=== PATIENT | female | born 1950 | race Caucasian/White ===

== ENCOUNTER 2019-07-31 14:49 | Observation (INO) ==
[2019-07-31] MEDS ORDERED: Pantoprazole 80 MG in 0.9 % Sodium Chloride 50 ML IVPB ONE (15:16)
[2019-07-31] MEDS ORDERED: 0.9 % Sodium Chloride 1,000 ML IVC ONE (15:16)
--- NOTE | 2019-07-31 15:19 | Emergency Department Note ---
Disposition Clinical Impression: Acute GI bleeding Disposition: Admitted As Inpatient Condition: Good Time of Disposition: 10:11 General Adult HPI - General Chief complaint: ED GI Bleed Stated complaint: GI bleed Time Seen by Provider: 07/31/19 15:14 Source: patient Limitations: no limitations - History of Present Illness Pain Scale: 0 - Related Data Home Medications Medication Instructions Recorded Confirmed Ospemifene [Osphena] 60 mg PO DAILY 07/31/19 08/01/19 Previous Rx's Medication Instructions Recorded Ferrous Sulfate 325 mg PO BIDWM 30 Days #60 tablet 08/02/19 Omeprazole [PriLOSEC] 40 mg PO DAILY@0630 30 Days #30 08/02/19 capsule. 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 - Social History Smoking Status: Never smoker Smokeless Tobacco Status: No Alcohol use: Reports: occasionally Drug use: Reports: none Physical Exam - General Limitations: no limitations General appearance: alert, in no apparent distress Course Vital Signs Temperature 98.0 F 07/31/19 14:51 Pulse Rate 109 07/31/19 14:51 Respiratory Rate 18 07/31/19 14:51 Blood Pressure 128/77 07/31/19 14:51 O2 Sat by Pulse Oximetry 100 07/31/19 14:51 Temperature 98.2 F 08/02/19 08:21 Pulse Rate 67 08/02/19 08:21 Respiratory Rate 16 08/02/19 08:21 Blood Pressure 122/66 08/02/19 08:21 O2 Sat by Pulse Oximetry 96 08/02/19 08:21 Oxygen Delivery Oxygen Delivery Room Air Medical Decision Making - Lab Data Result diagrams: 08/02/19 04:17 08/01/19 04:41 Lab Results 07/31/19 07/31/19 07/31/19 Range/Units 14:59 14:59 15:16 WBC 10.3 (4.3-11.1) K/mcL RBC 3.23 L (3.82-4.97) M/mcL Hgb 9.2 L (11.5-15.4) g/dL Hct 29.0 L (35.3-44.9) % MCV 89.8 (83.0-100.0) fL MCH 28.5 (28.0-33.3) pg MCHC 31.7 (31.6-35.5) g/dL RDW 13.6 (11.5-14.5) % Plt Count 223 (140-400) K/mcL MPV 10.9 (9.4-12.4) fL Immature Gran % 0.4 (0-4) % Seg Neutrophils % 71.9 % Lymphocytes % 24.4 % Monocytes % 3.0 % Eosinophils % 0.0 % Basophils % 0.3 % Neutrophils # 7.4 (1.6-8.9) K/mcL Lymphocytes # 2.5 (0.6-4.6) K/mcL Monocytes # 0.3 (0.0-1.3) K/mcL Eosinophils # 0.0 (0.0-0.6) K/mcL Basophils # 0.0 (0.0-0.2) K/mcL PT 12.1 (9.4-12.1) Seconds INR 1.1 APTT 25.2 L (26.0-36.0) Seconds Sodium 140 (136-145) mEq/L Potassium 3.8 (3.5-5.1) mEq/L Chloride 107 (98-107) mEq/L Carbon Dioxide 24 (23-29) mEq/L BUN 39 H (8-23) mg/dL Creatinine 0.90 (0.60-1.20) mg/dL Est GFR ( Amer) > 60 (> 60) Est GFR (Non-Af Amer) > 60 (> 60) BUN/Creatinine Ratio 43 H (6-26) Glucose 162 H (70-105) mg/dL Calculated Osmolality 303 H (280-300) Calcium 8.4 L (8.6-10.3) mg/dL Stool Occult Bld Scrn (Negative) Blood Type Antibody Screen Crossmatch 07/31/19 07/31/19 Range/Units 15:39 16:51 WBC (4.3-11.1) K/mcL RBC (3.82-4.97) M/mcL Hgb (11.5-15.4) g/dL Hct (35.3-44.9) % MCV (83.0-100.0) fL MCH (28.0-33.3) pg MCHC (31.6-35.5) g/dL RDW (11.5-14.5) % Plt Count (140-400) K/mcL MPV (9.4-12.4) fL Immature Gran % (0-4) % Seg Neutrophils % % Lymphocytes % % Monocytes % % Eosinophils % % Basophils % % Neutrophils # (1.6-8.9) K/mcL Lymphocytes # (0.6-4.6) K/mcL Monocytes # (0.0-1.3) K/mcL Eosinophils # (0.0-0.6) K/mcL Basophils # (0.0-0.2) K/mcL PT (9.4-12.1) Seconds INR APTT (26.0-36.0) Seconds Sodium (136-145) mEq/L Potassium (3.5-5.1) mEq/L Chloride (98-107) mEq/L Carbon Dioxide (23-29) mEq/L BUN (8-23) mg/dL Creatinine (0.60-1.20) mg/dL Est GFR ( Amer) (> 60) Est GFR (Non-Af Amer) (> 60) BUN/Creatinine Ratio (6-26) Glucose (70-105) mg/dL Calculated Osmolality (280-300) Calcium (8.6-10.3) mg/dL Stool Occult Bld Scrn Positive A (Negative) Blood Type A POSITIVE Antibody Screen NEGATIVE Crossmatch See Detail Critical Care Time Critical Care Time: Yes Total Critical Care Time: 30 Attestation: The high probability of a clinically significant, sudden or life threatening deterioration of the [] system(s) required my full and direct attention, intervention and personal management. The aggregate critical care time was [] minutes. This time is in addition to time spent performing reported procedures but includes the following: [] Data Review and interpretation [] Patient assessment and monitoring of vital signs [] Documentation [] Medication orders and management Attestation Statement - Attestation Attestation: I reviewed the residents documentation and agree with the residents assessment and plan of care. I have personally had face to face time with the patient. (Brief History, Brief Exam, and MDM) I personally supervised and was present for the ridley/critical portions of the following procedures completed by the resident: (add procedures performed here). [id number] time provided Patient arrives complaining of dark tarry stools and coffee-ground emesis. She takes no blood thinners. She is tachycardic and slightly pale upon arrival. She does complain of nausea. I attest to supervising the resident physician's interpretation of the ECG
--- NOTE | 2019-07-31 15:36 | Emergency Department Note ---
Disposition Clinical Impression: Acute GI bleeding Disposition: Admitted As Inpatient Time of Disposition: 16:35 General Adult HPI - General Chief complaint: ED GI Bleed Stated complaint: GI bleed Time Seen by Provider: 07/31/19 15:14 Source: patient Mode of arrival: ambulatory Limitations: no limitations Nursing Notes Reviewed: Yes Vital Signs Reviewed: Yes - History of Present Illness HPI Narrative: Vision 68-year-old female no significant past medical history presenting the emergency department for concerns for GI bleed. Patient states that this morning around 8 AM she had a episode of dark tarry stools and coffee-ground emesis. She then fell asleep and woke up around 2 PM and had another episode of dark tarry stools. Patient has never experienced anything like this before she has no history of GI bleeds. She had headache and took aspirin yesterday. No other blood thinning medications. Patient has not been taking iron supplementation or Pepto-Bismol. She takes no other daily medications. She admits to nausea, and fever/chills. Patient's last colonoscopy was 2017 which was normal. Has not had an upper endoscopy. Denies chest pain, shortness of breath, palpitations, weakness, fatigue. Pain Scale: 0 - Related Data Home Medications Medication Instructions Recorded Confirmed Famotidine [Heartburn Prevention] 20 mg PO DAILY 07/31/19 07/31/19 Ospemifene [Osphena] 60 mg PO DAILY 07/31/19 07/31/19 Allergies Allergy/AdvReac Type Severity Reaction Status Date / Time codeine Allergy Rash Verified 10/11/17 13:43 All systems ED: reviewed and negative except as stated. Review of Systems: As Per HPI Constitutional: Reports: as per HPI, fever, chills. Denies: weakness Eyes: Denies: eye pain, eye discharge ENT ED: Denies: ear pain, throat pain Cardiovascular: Denies: chest pain, palpitations Respiratory: Denies: cough, dyspnea Gastrointestinal: Denies: abdominal pain, nausea Genitourinary: Denies: urgency, dysuria Musculoskeletal: Denies: back pain, neck pain Integumentary: Denies: rash, abrasion Neurological: Denies: headache, weakness Psychiatric: Denies: anxiety, depression Endocrine: Denies: fatigue, heat or cold intolerance Hematological/Lymphatic: Denies: easy bleeding, easy bruising Allergic/Immunologic: Denies: facial swelling, urticaria Past Medical History - Past Medical History Attestation: Yes The following information was validated with the patient. 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 Absent: scleral icterus, conjunctival injection - ENT ENT exam: normal exam, normal oropharynx - Neck Neck exam: Present: normal inspection, full ROM - Chest Chest inspection: Present: normal inspection, symmetric chest wall rise. Abse nt: tenderness - Respiratory Respiratory exam: Present: normal lung sounds bilaterally. Absent: respiratory distress, wheezes - Cardiovascular Cardiovascular exam: Present: normal rhythm, tachycardia, normal heart sounds - Abdominal Exam Abdominal exam: Present: soft, Non-Tender. Absent: tenderness, distention, guarding - Extremities Exam Extremities exam: Present: normal inspection, full ROM - Expanded Lower Extremity Exam Neurovascular/Tendon exam: Present: normal capillary refill. Absent: pulse deficit, motor deficit, sensory deficit - Back Exam Back exam: Present: normal inspection, full ROM - Neurological Exam Neurological exam: Present: alert, oriented X3 - Psychiatric Psychiatric exam: Present: normal affect, normal mood - Skin Skin exam: Present: warm, dry Course Vital Signs Temperature 98.0 F 07/31/19 14:51 Pulse Rate 109 07/31/19 14:51 Respiratory Rate 18 07/31/19 14:51 Blood Pressure 128/77 07/31/19 14:51 O2 Sat by Pulse Oximetry 100 07/31/19 14:51 Temperature 98.7 F 07/31/19 20:53 Pulse Rate 78 07/31/19 20:53 Respiratory Rate 14 07/31/19 20:53 Blood Pressure 113/70 07/31/19 20:53 O2 Sat by Pulse Oximetry 98 07/31/19 20:53 Oxygen Delivery Oxygen Delivery Room Air Medical Decision Making - MDM Narrative Medical decision making narrative: 68-year-old female no significant past medical history presenting emergency department for GI bleed. Patient episodes of melena and hematochezia. We will perform evaluation to look for hemoglobin levels. Plan to admit the patient for new GI bleed. Patient's hemoglobin 9.6. She was given IV fluids as well as protonics. Spoke with hospitalist Dr. Romeo who is agreed to admit the patient. - Medical Records Medical records reviewed: Yes I reviewed the patient's medical records. - Lab Data Lab results reviewed: Yes I reviewed the patient's lab results. Result diagrams: 07/31/19 14:59 07/31/19 14:59 Lab Results 07/31/19 07/31/19 07/31/19 Range/Units 14:59 14:59 15:16 WBC 10.3 (4.3-11.1) K/mcL RBC 3.23 L (3.82-4.97) M/mcL Hgb 9.2 L (11.5-15.4) g/dL Hct 29.0 L (35.3-44.9) % MCV 89.8 (83.0-100.0) fL MCH 28.5 (28.0-33.3) pg MCHC 31.7 (31.6-35.5) g/dL RDW 13.6 (11.5-14.5) % Plt Count 223 (140-400) K/mcL MPV 10.9 (9.4-12.4) fL Immature Gran % 0.4 (0-4) % Seg Neutrophils % 71.9 % Lymphocytes % 24.4 % Monocytes % 3.0 % Eosinophils % 0.0 % Basophils % 0.3 % Neutrophils # 7.4 (1.6-8.9) K/mcL Lymphocytes # 2.5 (0.6-4.6) K/mcL Monocytes # 0.3 (0.0-1.3) K/mcL Eosinophils # 0.0 (0.0-0.6) K/mcL Basophils # 0.0 (0.0-0.2) K/mcL PT 12.1 (9.4-12.1) Seconds INR 1.1 APTT 25.2 L (26.0-36.0) Seconds Sodium 140 (136-145) mEq/L Potassium 3.8 (3.5-5.1) mEq/L Chloride 107 (98-107) mEq/L Carbon Dioxide 24 (23-29) mEq/L BUN 39 H (8-23) mg/dL Creatinine 0.90 (0.60-1.20) mg/dL Est GFR ( Amer) > 60 (> 60) Est GFR (Non-Af Amer) > 60 (> 60) BUN/Creatinine Ratio 43 H (6-26) Glucose 162 H (70-105) mg/dL Calculated Osmolality 303 H (280-300) Calcium 8.4 L (8.6-10.3) mg/dL Stool Occult Bld Scrn (Negative) Blood Type Antibody Screen 07/31/19 07/31/19 Range/Units 15:39 16:51 WBC (4.3-11.1) K/mcL RBC (3.82-4.97) M/mcL Hgb (11.5-15.4) g/dL Hct (35.3-44.9) % MCV (83.0-100.0) fL MCH (28.0-33.3) pg MCHC (31.6-35.5) g/dL RDW (11.5-14.5) % Plt Count (140-400) K/mcL MPV (9.4-12.4) fL Immature Gran % (0-4) % Seg Neutrophils % % Lymphocytes % % Monocytes % % Eosinophils % % Basophils % % Neutrophils # (1.6-8.9) K/mcL Lymphocytes # (0.6-4.6) K/mcL Monocytes # (0.0-1.3) K/mcL Eosinophils # (0.0-0.6) K/mcL Basophils # (0.0-0.2) K/mcL PT (9.4-12.1) Seconds INR APTT (26.0-36.0) Seconds Sodium (136-145) mEq/L Potassium (3.5-5.1) mEq/L Chloride (98-107) mEq/L Carbon Dioxide (23-29) mEq/L BUN (8-23) mg/dL Creatinine (0.60-1.20) mg/dL Est GFR ( Amer) (> 60) Est GFR (Non-Af Amer) (> 60) BUN/Creatinine Ratio (6-26) Glucose (70-105) mg/dL Calculated Osmolality (280-300) Calcium (8.6-10.3) mg/dL Stool Occult Bld Scrn Positive A (Negative) Blood Type A POSITIVE Antibody Screen NEGATIVE - Radiology Data Radiology results reviewed: Yes I reviewed the patient's radiology results. Chest X-Ray 07/31/19 15:51 IMPRESSION: No acute cardiopulmonary disease D/ / Andrez Witt MD / Andrez Witt MD Interpreting Provider: Andrez Witt MD - EKG Data EKG #1 EKG attestation: Yes I reviewed and interpreted this EKG. EKG results narrative: EKG performed at 1514 reviewed by myself intending shows a sinus tachycardic rhythm at a rate of 111 bpm, [place] 150, QRS 86, QTC 395. There are slight ST depressions in the inferior lateral leads. Changes no other signs of ischemia. There is no old EKG to compare with.
[2019-07-31 15:59] LABS: Basophils % 0.3 %; Hemoglobin 9.2 g/dL (11.5-15.4); Immature Granulocytes % 0.4 % (0-4); Lymphocytes # 2.5 K/mcL (0.6-4.6); Lymphocytes % 24.4 %; Mean Corpuscular HGB Conc 31.7 g/dL (31.6-35.5); Mean Corpuscular Hemoglobin 28.5 pg (28.0-33.3); Mean Corpuscular Volume 89.8 fL (83.0-100.0); Mean Platelet Volume 10.9 fL (9.4-12.4); Monocytes # 0.3 K/mcL (0.0-1.3); Neutrophils # 7.4 K/mcL (1.6-8.9); Platelet Count 223 K/mcL (140-400); Red Blood Count 3.23 M/mcL (3.82-4.97); Red Cell Distribution Width 13.6 % (11.5-14.5); Segmented Neutrophils % 71.9 %; White Blood Count 10.3 K/mcL (4.3-11.1)
[2019-07-31 16:08] LABS: INR 1.1; Prothrombin Time 12.1 Seconds (9.4-12.1)
[2019-07-31 16:11] LABS: Activated Partial Thrombo Time 25.2 Seconds (26.0-36.0)
[2019-07-31 16:16] LABS: BUN/Creatinine Ratio 43 (6-26); Blood Urea Nitrogen 39 mg/dL (8-23); Calcium 8.4 mg/dL (8.6-10.3); Carbon Dioxide 24 mEq/L (23-29); Chloride 107 mEq/L (98-107); Glucose 162 mg/dL (70-105); Osmolality,Calculated 303 (280-300); Potassium 3.8 mEq/L (3.5-5.1); Sodium 140 mEq/L (136-145); eGFR For African Americans > 60 (> 60); eGFR For Non-African Americans > 60 (> 60)
[2019-07-31] MEDS ORDERED: Naloxone 0.4 MG/ML INJ IVP PRN (17:12)
[2019-07-31] MEDS ORDERED: Ondansetron 4 MG/2 ML VIAL IVP PRN (17:12)
[2019-07-31] MEDS ORDERED: *HR* HYDROcodone/Acet 5/325 mg TABLET PO PRN (17:12)
[2019-07-31] MEDS ORDERED: Dextrose Gel 15 GM/37.5 ML TUBE PO PRN ×2 (17:15)
[2019-07-31] MEDS ORDERED: D5% in Water 1,000 ML IVC PRN (17:15)
[2019-07-31] MEDS ORDERED: *HR* Dextrose 50 % in Water (Syg) 50 ML SYRINGE IVP PRN (17:15)
[2019-07-31] MEDS ORDERED: D5% in 0.9% NACL 1,000 ML IVC SCH (17:15)
--- NOTE | 2019-07-31 17:56 | Internal Med History&Physical ---
Date of Encounter: 07/31/19 Time of Encounter: 17:49 Internal Medicine - H&P: HPI Chief complaint: GI bleed Admitted From: Home History of present illness: Ms. Brizuela is a 68 year old female PMH of GERD. Patient reported waking up today morning at 8am and had one episode of coffee ground emesis, and one episode of dark stool. she reported she went back to bed and around 2pm when she woke up had another bowel movement of dark stool. Patient denies abdominal pain, but reports nausea. Reports taking one aspirin a day, and taking some over the counter medication for GERD like symptoms. Denies previous episodes of GI bleed and reported she had a colonoscopy about 1 1/2 years ago and was told everything was ok. Reported 15 pounds weight lost for the past 8 month which she attributes to following a diet. Denies chest pain, shortness of breath. Past Med Surg Social Fam HX - Past Medical History Medical history: GERD, other Psychiatric history: no psych history - Past Surgical History Surgical History: other Additional surgical history: hand - Social History Smoking Status: Never smoker Smokeless Tobacco Status: No Alcohol use: occasionally Drug use: none Internal Medicine - H&P: Meds Allergy/AdvReac Type Severity Reaction Status Date / Time codeine Allergy Rash Verified 10/11/17 13:43 All Systems PM: A 10-system review of systems was performed and is negative for pertinent findings except as documented above in the HPI. - Constitutional Constitutional: no chills, no fever(s), no weakness - Cardiovascular Cardiovascular ROS IM: no chest pain, no edema - Respiratory Respiratory: no cough - Gastrointestinal Gastrointestinal: coffee ground emesis, heartburn, hematemesis, melena, nausea, vomiting, no abdominal pain - Genitourinary Genitourinary: no dysuria - Musculoskeletal Musculoskeletal ROS IM: no atrophy, no back pain - Integumentary Integumentary IM: no erythema - Neurological Neurological ROS: no headache(s) - Psychiatric Psychiatric: no irritability - Endocrine Endocrine IM: no cold intolerance, no excessive sweating - Hematologic/Lymphatic Hematologic/Lymphatic: no lymphadenopathy - Allergic/Immunologic Allergic/Immunologic: no GI upset with certain foods - Constitutional Vitals: Temp Pulse Resp BP Pulse Ox 98.0 F 73 18 108/53 100 07/31/19 14:51 07/31/19 16:35 07/31/19 16:35 07/31/19 16:35 07/31/19 16:35 Exam: Vitals: Reviewed General: Alert and oriented x4. In no distress Skin: Normal color, no rash, no lesions. HEENT: EOM, pupils equal, round and reactive. Cardiovascular: RRR, normal S1 & S2, no rubs, murmurs or gallops. Lungs: CTA b/l, no wheezes or crackles. Abdomen: Soft, non-tender, no rigidity. Extremities: No deformity, no edema or tenderness, no joint swelling or clubbing. Neurological: Normal cognition and motor skills. Rest of the physical exam is non contributory Internal Med - H&P Results - Labs CBC & Chem 7: 07/31/19 14:59 07/31/19 14:59 Labs: Short CBC 07/31/19 Range/Units 14:59 WBC 10.3 (4.3-11.1) K/mcL Hgb 9.2 L (11.5-15.4) g/dL Hct 29.0 L (35.3-44.9) % Plt Count 223 (140-400) K/mcL Neutrophils # 7.4 (1.6-8.9) K/mcL BMP 07/31/19 14:59 Sodium 140 Potassium 3.8 Chloride 107 Carbon Dioxide 24 BUN 39 H Creatinine 0.90 Glucose 162 H Calcium 8.4 L - Impressions ITS Impressions Chest X-Ray 07/31/19 15:51 IMPRESSION: No acute cardiopulmonary disease D/ / Andrez Witt MD / Andrez Witt MD Interpreting Provider: Andrez Witt MD - Diagnostic Studies Chest x-ray Status: image reviewed by me (No acute findings. ) - Assessment and Plan (1) GI bleed Current Visit: Yes Status: Acute Assessment and plan: patient reported one episode of coffee ground emesis and one large BM of dark stool. Possible esophagitis vs gastritis vs PUD, vs AVM. Plan NPO accu-checks Q6HRs plus lispro low dose sliding scale started on PPIs/IV BID and anti-emetics D5/0.9%NS @75ml/hr GI consulted CT abd/pelvis with contrast ordered Qualifiers: GI bleed type/associated pathology: unspecified gastrointestinal hemorrhage type Qualified Code(s): K92.2 - Gastrointestinal hemorrhage, unspecified (2) Anemia Current Visit: Yes Status: Acute Assessment and plan: plan of care as above Qualifiers: Anemia type: unspecified type Qualified Code(s): D64.9 - Anemia, unspecified (3) DVT prophylaxis Current Visit: Yes Status: Acute Assessment and plan: intermittent pneumatic compression - Time Spent With Patient Total time spent is greater than 50% in coordination of care (as documented) at patient's floor/unit and/or counseling patient: Greater than 35 minutes (45)
[2019-07-31] MEDS ORDERED: Isovue-370 500 ML BOTTLE IVP ONE ×2 (18:04→20:14)
[2019-07-31] MEDS ORDERED: Acetaminophen IV 500 MG/50 ML INFUS..BTL IVPB ONE (19:43)
[2019-07-31 21:14] LABS: Basophils % 0.3 %; Hematocrit 25.5 % (35.3-44.9); Hemoglobin 8.2 g/dL (11.5-15.4); Immature Granulocytes % 0.4 % (0-4); Lymphocytes # 2.1 K/mcL (0.6-4.6); Lymphocytes % 18.7 %; Mean Corpuscular HGB Conc 32.2 g/dL (31.6-35.5); Mean Corpuscular Hemoglobin 28.7 pg (28.0-33.3); Mean Corpuscular Volume 89.2 fL (83.0-100.0); Mean Platelet Volume 11.1 fL (9.4-12.4); Monocytes # 0.3 K/mcL (0.0-1.3); Monocytes % 2.7 %; Neutrophils # 8.8 K/mcL (1.6-8.9); Platelet Count 189 K/mcL (140-400); Red Blood Count 2.86 M/mcL (3.82-4.97); Red Cell Distribution Width 13.8 % (11.5-14.5); Segmented Neutrophils % 77.9 %; White Blood Count 11.2 K/mcL (4.3-11.1)
[2019-07-31] MEDS: Insulin LISPRO 300 UNITS/3 ML VIAL SQ SCH (21:29)
[2019-07-31] MEDS: Pantoprazole 40 MG VIAL IVP SCH (21:29)
[2019-08-01] MEDS: Insulin LISPRO 300 UNITS/3 ML VIAL SQ SCH ×4 (00:04→19:44)
[2019-08-01] MEDS ORDERED: Acetaminophen 325 MG TABLET PO PRN (04:35)
[2019-08-01 05:17] LABS: Basophils % 0.2 %; Hematocrit 22.2 % (35.3-44.9); Immature Granulocytes % 0.2 % (0-4); Lymphocytes # 2.4 K/mcL (0.6-4.6); Lymphocytes % 37.5 %; Mean Corpuscular HGB Conc 31.5 g/dL (31.6-35.5); Mean Corpuscular Hemoglobin 28.7 pg (28.0-33.3); Mean Platelet Volume 11.1 fL (9.4-12.4); Monocytes # 0.3 K/mcL (0.0-1.3); Monocytes % 5.1 %; Neutrophils # 3.6 K/mcL (1.6-8.9); Platelet Count 160 K/mcL (140-400); Red Blood Count 2.44 M/mcL (3.82-4.97); Red Cell Distribution Width 14.1 % (11.5-14.5); White Blood Count 6.3 K/mcL (4.3-11.1)
[2019-08-01 05:36] LABS: Alanine Aminotransferase 9 Units/L (7-52); Albumin 3.1 g/dL (3.5-5.7); Albumin/Globulin Ratio 2.4 (1.1-2.2); Alkaline Phosphatase 23 Units/L (34-104); Aspartate Amino Transferase 10 Units/L (13-39); BUN/Creatinine Ratio 24 (6-26); Bilirubin,Total 0.3 mg/dL (0.3-1.0); Blood Urea Nitrogen 20 mg/dL (8-23); Carbon Dioxide 25 mEq/L (23-29); Chloride 112 mEq/L (98-107); Globulin 1.3 g/dL (2.4-3.5); Glucose 142 mg/dL (70-105); Magnesium 1.9 mg/dL (1.6-2.6); Osmolality,Calculated 301 (280-300); Phosphorous 2.3 mg/dL (2.7-4.5); Potassium 3.3 mEq/L (3.5-5.1); Sodium 143 mEq/L (136-145); Total Protein 4.4 g/dL (6.4-8.9); eGFR For African Americans > 60 (> 60); eGFR For Non-African Americans > 60 (> 60)
[2019-08-01] MEDS: Pantoprazole 40 MG VIAL IVP SCH (06:22)
--- NOTE | 2019-08-01 07:08 | Electrocardiograph Report ---
[address] [address] Test Date: 2019-07-31 Pat Name: Gay Brizuela Department: 104 Room: 3A41 Gender: F [employer] Worker: Sharmin : 1950 Requested By: Sreedhar Pryor Order Number: [id number] Reading MD: Inderjit Acuna Measurements Intervals [place] Rate: 111 P: 42 MT: 150 QRS: 61 QRSD: 86 T: 45 QT: 330 QTc: 395 Interpretive Statements SINUS TACHYCARDIA POSSIBLE ANTERIOR MYOCARDIAL INFARCTION, PROBABLY OLD ABNORMAL RHYTHM ECG Electronically Signed On 08-01-2019 7:07:03 EDT by Inderjit Acuna
[2019-08-01] MEDS ORDERED: 0.9 % Sodium Chloride 250 ML IVC SCH (07:45)
--- NOTE | 2019-08-01 08:33 | Internal Medicine Consult Note ---
Date of Encounter: 08/01/19 Time of Encounter: 08:33 - Assessment and Plan (1) Acute GI bleeding Current Visit: Yes Status: Acute Assessment and plan: - Evidence of acute GI bleeding including hematemesis as well as melena - Most likely upper GI in nature- etiology suspected to be gastric ulcer versus gastritis versus NSAID induced - Patient initially did present tachycardic which has resolved with fluids - Hemoglobin initially 9.2 which is trended to 7.0 with some evidence of hemodilution - No previous baseline to compare - Coagulation studies within normal limits. - Hemoccult blood was positive - CTA of the abdomen and pelvis was obtained which noted no evidence of acute extravasation - Previous colonoscopy on 09/17/17 which showed colonic diverticulosis with Dr. Woods. Performed for screening. - Nothing by mouth since admission - Started on Protonix twice a day Plan - Recommend that patient undergo EGD this afternoon - Continue nothing by mouth status - Continue Protonix 40 mg IV twice a day - Further recommendations pending EGD results (2) Anemia Current Visit: Yes Status: Acute Assessment and plan: As above Qualifiers: Anemia type: unspecified type Qualified Code(s): D64.9 - Anemia, unspecified Internal Medicine - CN: HPI - Data of Consult Patient: new to practice Consult date: 08/01/19 Requesting Physician: Bowen Vail MD - Consult Narrative Reason for consult: GI Bleed History of present illness: Ms. Brizuela is a 68 year old female with past medical history of GERD who presents to the emergency department with complaint of coffee-ground emesis as well as melena. She states that she woke on Thursday morning approximately 8 AM and had one episode of coffee-ground emesis. She has never had episodes like this in the past. She states that she did have one dark colored bowel movement that was formed early in the morning followed by a sticky dark bowel movement later in the afternoon. She denies any symptoms of fevers, chills, recent illn ess, sick contacts as well as any abdominal pain or bright red blood per rectum. She denies any history of GI bleeds and is not on anticoagulation but does take a full dose aspirin as needed for pain. She states that she uses that approximately 2-3 times per week with most recent of twice on Thursday for headache. She has had a colonoscopy on 09/17/17 which showed colonic diverticulosis but otherwise within normal limits. She has not had any history of peptic ulcer disease, any EGDs. She states prior to this episode her bowel movements have been within normal limits. She also denies any symptoms of vision changes, joint pains, urinary symptoms but does admit to current headache. In the emergency department, vital signs are significant for heart rate of 109 and stable blood pressure. Heart rate did improve during hospital stay. Laboratory results were significant for a presenting hemoglobin of 9.2 which is now trended to 7.0 as well as platelets at 160. Coagulation studies are mildly low and PTT of 25.2. Chemistries were overall unremarkable however did show an elevated BUN on presentation at 39, glucose 162 calcium 8.4, normal LFTs. Fecal occult was positive. CT of the abdomen and pelvis shows no evidence of active arterial extravasation along the GI tract and otherwise no acute findings. At time of my interview, patient states that she is doing very well. She has no further episodes of emesis and has no further bowel movements. She remains pain-free. Past medical history: GERD Past surgical history: Patient denies Social history: Never smoker, occasional alcohol use (2-3/week), denies drug use Family hx: breast and lung cancer in mother. Past Med Surg Social Fam HX - Past Medical History Medical history: GERD, other Psychiatric history: no psych history - Past Surgical History Surgical History: other Additional surgical history: hand - Social History Smoking Status: Never smoker Smokeless Tobacco Status: No Alcohol use: occasionally Drug use: none Review of systems: - Constitutional: Positive for intentional weight loss. Denies fevers, chills, generalized fatigue - Head/Neck: positive for [place]. Denies neck stiffness - EENT: Denies vision changes/blurriness, rhinorrhea, congestion, sore throat - CVS: Denies chest pain, palpitations, PARHAM, edema, - Pulm: Denies SOB, cough, sputum, wheezing - GI: Admits to nausea, hematemasis, melena. Denies abdominal pain,diarrhea, constipation - : Denies dysuria, increased frequency, urgency, hematuria, - MSK: Denies joint pain, limited ROM - Skin: Denies rashes, ulcers, color changes, - Neuro: Denies paresthesias, focal deficits, ataxia, Internal Medicine - CN: Meds Famotidine [Heartburn Prevention] 20 mg PO DAILY 07/31/19 [History] Ospemifene [Osphena] 60 mg PO DAILY 07/31/19 [History] Allergy/AdvReac Type Severity Reaction Status Date / Time codeine Allergy Rash Verified 10/11/17 13:43 Internal Med - CN: Exam - Constitutional Vitals: Temp Pulse Resp BP Pulse Ox 97.9 F 73 15 108/67 99 08/01/19 06:53 08/01/19 06:53 08/01/19 06:53 08/01/19 06:53 08/01/19 06:53 Exam: Gen.: Vitals noted. No acute distress. AAOx3, resting comfortably in bed. HEENT: EOMI, oropharynx clear, Normocephalic, atraumatic, MMM Cardiac: RRR, no murmur, +S1/S2, No BLE edema Pulmonary: CTA bilaterally, no wheezes, rales or rhonchi, equal chest expansion, unlabored breathing Abdomen: soft, nontender, BS noted, no guarding, no palpable HSM, no distention Skin: warm and dry, no visible lesions. MSK: ROM not assessed. no joint swelling noted, gait no assessed while in bed. Non tender calf or clubbing Neuro: A&Ox3, moves all extremities, no focal deficits, sensation intact Psych: Appropriate mood and behavior, AOx3 Internal Medicine - CN: Reslt - Labs CBC & Chem 7: 08/01/19 04:41 08/01/19 04:41 Labs: Short CBC 07/31/19 07/31/19 08/01/19 Range/Units 14:59 20:53 04:41 WBC 10.3 11.2 H 6.3 (4.3-11.1) K/mcL Hgb 9.2 L 8.2 L 7.0 L (11.5-15.4) g/dL Hct 29.0 L 25.5 L 22.2 L (35.3-44.9) % Plt Count 223 189 160 (140-400) K/mcL Neutrophils # 7.4 8.8 3.6 (1.6-8.9) K/mcL BMP 07/31/19 08/01/19 14:59 04:41 Sodium 140 143 Potassium 3.8 3.3 L Chloride 107 112 H Carbon Dioxide 24 25 BUN 39 H 20 Creatinine 0.90 0.85 Glucose 162 H 142 H Calcium 8.4 L 8.0 L Liver Function 08/01/19 Range/Units 04:41 Total Bilirubin 0.3 (0.3-1.0) mg/dL AST 10 L (13-39) Units/L ALT 9 (7-52) Units/L Alkaline Phosphatase 23 L (34-104) Units/L Albumin 3.1 L (3.5-5.7) g/dL - ABG Interpretation ABG results: PT/INR, D-dimer PT 12.1 Seconds (9.4-12.1) 07/31/19 15:16 - Impressions Impressions Chest X-Ray 07/31/19 15:51 IMPRESSION: No acute cardiopulmonary disease D/ / Andrez Witt MD / Andrez Witt MD Interpreting Provider: Andrez Witt MD Abdomen/Pelvis CTA 07/31/19 22:17 IMPRESSION: No evidence of active arterial extravasation along the gastrointestinal tract. Suspected source for GI bleeding is the patient's colonic diverticulosis. No acute nonvascular abdominopelvic findings. D/ / Sigifredo Cole / Sigifredo Cole Interpreting Provider: Sigifredo Cole Consult Discharge Plan - Plan Referrals: Rio Smith Jr, MD [Primary Care Provider] -
[2019-08-01 09:11] LABS: Estimated Average Glucose 137 mg/dl
--- NOTE | 2019-08-01 09:33 | Internal Med Progress Note ---
Hospitalist Progress Note - Encounter Date of Encounter: 08/01/19 Time of Encounter: 09:30 - Subjective Interval History: I have seen and evaluated the patient at bedside. Patient reported feeling ok, denies bloody stool. denies nausea, vomiting or abdominal pain, as well as chest pain. - Exam Vitals: Temp Pulse Resp BP Pulse Ox 97.9 F 73 15 108/67 99 08/01/19 06:53 08/01/19 06:53 08/01/19 06:53 08/01/19 06:53 08/01/19 06:53 Exam: Vitals: Reviewed General: Alert and oriented x4. In no distress Cardiovascular: RRR, normal S1 & S2, no rubs, murmurs or gallops. Lungs: CTA b/l, no wheezes or crackles. Abdomen: Soft, non-tender, no rigidity. NABS in all 4 quadrants. Extremities: No edema Neurological: No focal neurological abnormalities. Rest of the physical exam is non contributory - Assessment and Plan (1) GI bleed Current Visit: Yes Status: Resolved Assessment and Plan: Patient reported one episode of coffee ground emesis and one large BM of dark stool. Possible esophagitis vs gastritis vs PUD, vs AVM. CT/CT angio abdomen pelvis IMPRESSION: No evidence of active arterial extravasation along the gastrointestinal tract. Suspected source for GI bleeding is the patient's colonic diverticulosis. No acute nonvascular abdominopelvic findings. Plan Keep NPO, patient scheduled for EGD today will transfuse 1 unit of PRBCs repeat H&H one hour post transfusion c/w accu-checks Q6HRs plus lispro low dose sliding scale c/w PPIs/IV BID and anti-emetics GI consulted, recommendations appreciated. (2) Anemia Current Visit: Yes Status: Acute Assessment and Plan: due to GI bleed. plan of care as above. (3) Diabetes Current Visit: Yes Status: Chronic Assessment and Plan: patient on lispro low dose sliding scale. (4) Hypophosphatemia Current Visit: Yes Status: Acute Assessment and Plan: electrolyte replaced. will recheck electrolyte level tomorrow morning, (5) Hypokalemia Current Visit: Yes Status: Acute Assessment and Plan: plan of care as above. (6) Morbid obesity with BMI of 40.0-44.9, adult Current Visit: Yes Status: Chronic DVT Prophylaxis: Intermittent pneumatic compression for dvt prophylaxis. no chemical dvt prophylaxis due to GI bleed - Summary of Assessment and Plan Summary of Assessment and Plan: Patient to remain in the hospital scheduled for EGD, will be transfuse 1 unit of PRBCs. Potential discharge tomorrow. - Time Spent with Patient Total time spent is greater than 50% in coordination of care (as documented) at patient's floor/unit and/or counseling patient: Greater than 35 minutes (40) Plan of Care Discussed with: patient (and the nurse.) Internal Medicine: Result - Labs CBC & Chem 7: 08/01/19 04:41 08/01/19 04:41 Labs: Short CBC 07/31/19 07/31/19 08/01/19 Range/Units 14:59 20:53 04:41 WBC 10.3 11.2 H 6.3 (4.3-11.1) K/mcL Hgb 9.2 L 8.2 L 7.0 L (11.5-15.4) g/dL Hct 29.0 L 25.5 L 22.2 L (35.3-44.9) % Plt Count 223 189 160 (140-400) K/mcL Neutrophils # 7.4 8.8 3.6 (1.6-8.9) K/mcL BMP 07/31/19 08/01/19 14:59 04:41 Sodium 140 143 Potassium 3.8 3.3 L Chloride 107 112 H Carbon Dioxide 24 25 BUN 39 H 20 Creatinine 0.90 0.85 Glucose 162 H 142 H Calcium 8.4 L 8.0 L Liver Function 08/01/19 Range/Units 04:41 Total Bilirubin 0.3 (0.3-1.0) mg/dL AST 10 L (13-39) Units/L ALT 9 (7-52) Units/L Alkaline Phosphatase 23 L (34-104) Units/L Albumin 3.1 L (3.5-5.7) g/dL - ABG Interpretation ABG results: PT/INR, D-dimer PT 12.1 Seconds (9.4-12.1) 07/31/19 15:16 - Impressions Impressions Chest X-Ray 07/31/19 15:51 IMPRESSION: No acute cardiopulmonary disease D/ / Andrez Witt MD / Andrez Witt MD Interpreting Provider: Andrez Witt MD Abdomen/Pelvis CTA 07/31/19 22:17 IMPRESSION: No evidence of active arterial extravasation along the gastrointestinal tract. Suspected source for GI bleeding is the patient's colonic diverticulosis. No acute nonvascular abdominopelvic findings. D/ / Sigifredo Cole / Sigifredo Cole Interpreting Provider: Sigifredo Cole Consult Discharge Plan - Plan Referrals: Rio Smith Jr, MD [Primary Care Provider] - (1) GI bleed Qualifiers: GI bleed type/associated pathology: unspecified gastrointestinal hemorrhage type Qualified Code(s): K92.2 - Gastrointestinal hemorrhage, unspecified (2) Anemia Qualifiers: Anemia type: unspecified type Qualified Code(s): D64.9 - Anemia, unspecified (3) Diabetes Qualifiers: Diabetes mellitus type: type 2 Diabetes mellitus detention insulin use: u nspecified detention insulin use status Diabetes mellitus complication status: without complication Qualified Code(s): E11.9 - Type 2 diabetes mellitus without complications
[2019-08-01] MEDS ORDERED: Potassium Phosphate 44 MEQ in 0.9 % Sodium Chloride 250 ML IVPB ONE (09:37)
[2019-08-01] MEDS ORDERED: *HR* Midazolam HCl 5 MG/5 ML VIAL IVP ONE ×2 (11:29→11:41)
[2019-08-01] MEDS ORDERED: Tetracaine/Benzocaine/Butamben 1 SPRAY AEROSOL MM ONE (11:29)
[2019-08-01] MEDS ORDERED: Simethicone 40 MG/0.6 ML MLS IR ONE (11:29)
[2019-08-01] MEDS ORDERED: *HR* FentaNYL (PF) 100 MCG/2 ML VIAL IVP ONE (11:29)
--- NOTE | 2019-08-01 11:31 | Pre-Sedation Evaluation ---
Pre-sedation evaluation - Pre-sedation checklist Date of procedure: 08/01/19 Procedure: EGD Recent Vitals: Last Vital Signs Temp 98.6 F 08/01/19 10:30 Pulse 70 08/01/19 10:30 Resp 15 08/01/19 10:30 BP 108/67 08/01/19 10:30 Pulse Ox 99 08/01/19 06:53 H&P (including ROS) documented in medical record: Yes Previous reaction to sedatives/anesthetics: No Dietary Status: NPO after Midnight Airway Assessment: Patient can open mouth completely, TMJ function normal Dentition: No loose teeth or bridges Possible difficult airway: No ASA Classification *see protocol: CLASS I-Normal, healthy patient Plan of Care: Pt appropriate candidate for procedure/moderate/conscious sedation
[2019-08-01] MEDS ORDERED: *HR* FentaNYL (PF) 100 MCG/2 ML VIAL ONE (11:41)
--- NOTE | 2019-08-01 13:03 | Event Note ---
Date of Encounter: 08/01/19 Time of Encounter: 13:01 EGD Findings 1. Three small pyloric ulcers.. clean based. No clot, visible vessel or active bleeding. Recc: 1. Will need PPI therapy for 6-8 weeks 2. I will follow up with H. Pylori testing. 3. Agree with Iron therapy 4. Would favor DC AM 08/02
[2019-08-01 14:42] LABS: Basophils % 0.3 %; Hematocrit 29.2 % (35.3-44.9); Immature Granulocytes % 0.7 % (0-4); Lymphocytes # 2.5 K/mcL (0.6-4.6); Lymphocytes % 40.4 %; Mean Corpuscular HGB Conc 31.5 g/dL (31.6-35.5); Mean Corpuscular Hemoglobin 28.7 pg (28.0-33.3); Mean Platelet Volume 10.9 fL (9.4-12.4); Monocytes # 0.3 K/mcL (0.0-1.3); Monocytes % 4.9 %; Neutrophils # 3.3 K/mcL (1.6-8.9); Platelet Count 169 K/mcL (140-400); Red Blood Count 3.21 M/mcL (3.82-4.97); Red Cell Distribution Width 14.2 % (11.5-14.5); Segmented Neutrophils % 53.7 %; White Blood Count 6.1 K/mcL (4.3-11.1)
[2019-08-01 14:50] LABS: Hemoglobin 9.2 g/dL (11.5-15.4)
[2019-08-02 04:56] LABS: Basophils % 0.3 %; Hematocrit 25.2 % (35.3-44.9); Hemoglobin 8.2 g/dL (11.5-15.4); Immature Granulocytes % 0.3 % (0-4); Lymphocytes # 2.7 K/mcL (0.6-4.6); Lymphocytes % 47.6 %; Mean Corpuscular HGB Conc 32.5 g/dL (31.6-35.5); Mean Corpuscular Hemoglobin 29.2 pg (28.0-33.3); Mean Corpuscular Volume 89.7 fL (83.0-100.0); Mean Platelet Volume 10.9 fL (9.4-12.4); Monocytes # 0.3 K/mcL (0.0-1.3); Monocytes % 5.1 %; Neutrophils # 2.7 K/mcL (1.6-8.9); Platelet Count 157 K/mcL (140-400); Red Blood Count 2.81 M/mcL (3.82-4.97); Red Cell Distribution Width 14.4 % (11.5-14.5); Segmented Neutrophils % 46.7 %; White Blood Count 5.7 K/mcL (4.3-11.1)
[2019-08-02 05:14] LABS: % Iron Saturation 12 % (15-50); Iron 35 mcg/dL (50-170); Transferrin 205 mg/dL (203-362)
--- NOTE | 2019-08-02 08:09 | Event Note ---
Date of Encounter: 08/02/19 Time of Encounter: 08:09 Preliminary on H. Pylori is negative at this time.
[2019-08-02] MEDS: Insulin LISPRO 300 UNITS/3 ML VIAL SQ SCH ×2 (08:39→12:39)
--- NOTE | 2019-08-02 09:06 | Discharge Summary ---
- NOTES TO OUTPATIENT PROVIDER Notes to Outpatient Provider: Have a repeat cbc within a week of hospital discharge. Orders not resulted at time of discharge: Pending orders 08/01/19 12:47 H. pylori Urease Cult. CLOtest [RM] Stat 08/01/19 12:51 Surgical Pathology [PTH] Routine Date of Encounter: 08/02/19 Time of Encounter: 09:02 - Discharge Diagnosis (1) GI bleed Priority: Primary Status: Resolved Qualifiers: GI bleed type/associated pathology: unspecified gastrointestinal hemorrhage type Qualified Code(s): K92.2 - Gastrointestinal hemorrhage, unspecified (2) Anemia Priority: Secondary Status: Acute Assessment and Plan: Acute blood lost anemia Qualifiers: Anemia type: unspecified type Qualified Code(s): D64.9 - Anemia, unspecified (3) Diabetes Priority: Secondary Status: Chronic Qualifiers: Diabetes mellitus type: type 2 Diabetes mellitus supervisor long goods insulin use: unspecified supervisor long goods insulin use status Diabetes mellitus complication status: without complication Qualified Code(s): E11.9 - Type 2 diabetes mellitus without complications (4) Hypophosphatemia Priority: Secondary Status: Resolved (5) Hypokalemia Priority: Secondary Status: Resolved (6) Morbid obesity with BMI of 40.0-44.9, adult Priority: Secondary Status: Chronic (7) Pyloric ulcer Priority: Secondary Status: Acute Assessment and Plan: H.Pylori negative. Qualifiers: Gastric ulcer chronicity: acute Qualified Code(s): K25.3 - Acute gastric ulcer without hemorrhage or perforation Hospital course: Ms. Brizuela is a 68 year old female PMH of GERD. Patient reported waking up today morning at 8am and had one episode of coffee ground emesis, and one episode of dark stool. she reported she went back to bed and around 2pm when she woke up had another bowel movement of dark stool. Patient admitted to the hospital due to upper GI bleed. Patient managed with IV hydration, transfused 1 unit of PRBCs, IG consulted patient underwent EGD: Normal esophagus. Nonbleeding gastric ulcers with no stigmata of bleeding. Normal examined duodenum. CT/CT angio abdomen pelvis IMPRESSION: No evidence of active arterial extravasation along the gastrointestinal tract. Suspected source for GI bleeding is the patient's colonic diverticulosis. No acute nonvascular abdominopelvic findings. Patient is clinically stable to be discharged home on PPIs for 8 weeks. Recommended to follow up with her PCP within week to have a repeat cbc. - Time Spent with Patient Total time spent providing and/or coordinating discharge services: Time spent: Greater than 30 minutes (35) - Discharge Medications Prescriptions: New Sucralfate [Carafate] 1 gm PO QIDAC 30 Days #90 tablet Ferrous Sulfate 325 mg PO BIDWM 30 Days #60 tablet Omeprazole [PriLOSEC] 40 mg PO DAILY@0630 30 Days #30 capsule. Continued Ospemifene [Osphena] 60 mg PO DAILY Discontinued Famotidine [Heartburn Prevention] 20 mg PO DAILY Home Medications: Ospemifene [Osphena] 60 mg PO DAILY 07/31/19 [History] Ferrous Sulfate 325 mg PO BIDWM 30 Days #60 tablet 08/02/19 [Rx] Omeprazole [PriLOSEC] 40 mg PO DAILY@0630 30 Days #30 capsule. 08/02/19 [Rx] Sucralfate [Carafate] 1 gm PO QIDAC 30 Days #90 tablet 08/02/19 [Rx] Allergies/Adverse Reactions: Allergy/AdvReac Type Severity Reaction Status Date / Time codeine Allergy Rash Verified 10/11/17 13:43 Date of admission: 07/31/19 17:24 Primary care physician: Rio Smith Jr, MD Consults: 07/31/19 17:17 Consult to Gastroenterology [CONS] Stat Consulting Provider: Gastroenterology Nataliia Reason for Consult: gi bleed Call Completed: Yes - Constitutional Vitals: Temp Pulse Resp BP Pulse Ox 98.2 F 67 16 122/66 96 08/02/19 08:21 08/02/19 08:21 08/02/19 08:21 08/02/19 08:21 08/02/19 08:21 Exam: Vitals: Reviewed General: Alert and oriented x4. In no distress Cardiovascular: RRR, normal S1 & S2, no rubs, murmurs or gallops. Lungs: CTA b/l, no wheezes or crackles. Abdomen: Soft, non-tender, no rigidity. NABS in all 4 quadrants. Extremities: No edema Neurological: No focal neurological abnormalities. Rest of the physical exam is non contributory - Patient Status Disposition: Home, Self-Care Condition: Good Functional capacity at discharge: independent ambulation Overall status at discharge: patient is back to baseline - Discharge Instructions Follow Up With: Rio Smith Jr, MD [Primary Care Provider] - - Diet and Activity Activity: resume usual activities as tolerated Diet: low salt diet
[2019-08-02 11:29] VITALS: BP 106/63
[2019-08-02 14:08] LABS: Basophils % 0.3 %; Hematocrit 31.3 % (35.3-44.9); Immature Granulocytes % 0.4 % (0-4); Lymphocytes # 1.9 K/mcL (0.6-4.6); Lymphocytes % 25.5 %; Mean Corpuscular HGB Conc 31.6 g/dL (31.6-35.5); Mean Corpuscular Hemoglobin 29.2 pg (28.0-33.3); Mean Corpuscular Volume 92.3 fL (83.0-100.0); Mean Platelet Volume 10.6 fL (9.4-12.4); Monocytes # 0.3 K/mcL (0.0-1.3); Monocytes % 3.3 %; Neutrophils # 5.4 K/mcL (1.6-8.9); Platelet Count 186 K/mcL (140-400); Red Blood Count 3.39 M/mcL (3.82-4.97); Red Cell Distribution Width 14.5 % (11.5-14.5); Segmented Neutrophils % 70.5 %; White Blood Count 7.6 K/mcL (4.3-11.1)
[2019-08-02 14:22] LABS: Hemoglobin 9.9 g/dL (11.5-15.4)
== END 2019-08-02 15:54 | disposition home or self-care (01) ==
LOC: 3ANU 14:49 → EMEROOARM 14:49 → SUATTDRO 17:24 → 3ANU 18:53
PROVIDERS: ADMIT Internal Medicine; ATTEND Internal Medicine
PROC: ENDOEBX (2019-08-01 15:30)